=== PATIENT | female | born 1960 | race Caucasian/White ===

== ENCOUNTER 2019-01-03 09:33 | Day surgery (SDC) | payer BC ==
[~2019-01-03] VITALS: Ht 165.1 cm; Wt 56.5 kg
[2019-01-03 10:40] VITALS: Ht 165.1 cm; Wt 56.5 kg
[2019-01-03] MEDS ORDERED: CHOLESTEROL MED PO (10:50)
[2019-01-03] MEDS ORDERED: DIABETES MED PO (10:50)
[2019-01-03] MEDS ORDERED: HYPERTENSION MED PO (10:50)
[2019-01-03 10:54] VITALS: BP 157/68; PULSE 58; RESP 19
[2019-01-03] MEDS ORDERED: MIDAZOLAM 1 MG/ML 2 ML INJ ONE ×2 (11:43)
[2019-01-03] MEDS ORDERED: FENTAnyl 50 MCG/ML VIAL ONE (11:43)
[2019-01-03 11:58] VITALS: BP 112/58; PULSE 54; RESP 16
== END 2019-01-03 13:23 | disposition home or self-care (01) ==
LOC: GIL 09:33
PROVIDERS: ATTEND Internal Medicine Gastroenterology
DX: Z12.11 Encounter for screening for malignant neoplasm of colon (principal); K57.30 Diverticulosis of large intestine without perforation or abscess without bleeding; K64.8 Other hemorrhoids; D12.5 Benign neoplasm of sigmoid colon; K29.60 Other gastritis without bleeding; I10 Essential (primary) hypertension; E11.9 Type 2 diabetes mellitus without complications
CPT/HCPCS: 43239; 45380; 82962; 88305; 88313; J2250; J3010; Z7610